=== PATIENT | male | born 1930 | race Caucasian/White ===

== ENCOUNTER 2016-07-23 23:56 | Inpatient (IN) | payer MEDICARE ==
[~2016-07-23] VITALS: Ht 165.1 cm; Wt 90.7 kg
[~2016-07-23 23:56] MED LIST: CHOL100045 PO; CYAN500 PO; LISI10TA PO; OMEP20CA11 PO; TAMS0.4C98 PO; TRIA1TAB3 PO
[2016-07-24] VITALS (10 sets, daily range): BP systolic 103–128; BP diastolic 51–75; PULSE 63–115; RESP 14–21; O2SAT 94–98
--- NOTE | 2016-07-24 00:07 | ED.REPORT ---
HPI-General Illness Date of Service Jul 24, 2016 ED Provider: Bebeto Ford MD Patient is a 85 year old male with a history of ITP and hypertension who presents to the ED via EMS after became increasingly weak this evening, following 3 days of flu-like symptoms. Patient reports a frequent cough and difficulty breathing. Patient is accompanied by his daughter (GEOVANNI), who served as the primary historian. His daughter reports that the patient nearly fell to the ground several times this evening and he is not able to ambulate well on his own. She claims that he sustained a ground level fall just prior to arrival. The patient states that he simply slumped down into his chair and then onto the ground. However, his daughter apparently heard a thump from the other room. Patient states that he is too weak to sit up on arrival to the ED. His daughter reports that everyone in the family is currently has an upper respiratory infection. His was recently admitted to [facility] for pneumonia. The patient had a chest x-ray earlier today, which did not show a definite pneumonia. Per his daughter, his PCP (Dr. Pascal) stated that the X-ray was a poor film and that he appeared "congested". He was started on Levofloxacin for an upper respiratory infection. The patient had his first dose this evening and his daughter is concerned that he may have renal failure. The patient has also had a fever earlier today, as high as 102.1F. The patient does not have an inhaler or nebulizer at home. He denies a history of asthma or COPD. Patient also reports having severe back pain, which started after the chest x-ray tonight. Patient denies chest pain or increased swelling in his legs. Patient denies sustaining any injuries tonight. Nursing Notes Stated Complaint: WEAKNESS Chief Complaint: General Complaint Nursing Notes Reviewed: Yes Allergies: Coded Allergies: bacitracin (Verified Allergy, Unknown, 07/24/16) clonidine (Verified Allergy, Unknown, 07/24/16) gramicidin D (Verified Allergy, Unknown, 07/24/16) neomycin (Verified Allergy, Unknown, 07/24/16) polymyxin B (Verified Allergy, Unknown, 07/24/16) terbinafine (Verified Allergy, Unknown, 07/24/16) Scheduled Cholecalciferol (Vitamin D3) (Vitamin D3) 2,000 Unit Capsule 1 CAPSULE PO DAILY Cyanocobalamin (Vitamin B12) 500 Mcg Tablet 1,000 MCG PO DAILY Lisinopril (Lisinopril) 10 Mg Tablet 10 MG PO DAILY Omeprazole (Omeprazole) 20 Mg Capsule.dr 20 MG PO BID Tamsulosin (Flomax) 0.4 Mg Capsule 0.4 MG PO DAILY Triamterene/HCTZ 37.5-25 mg (Triamterene/HCTZ 37.5-25 mg) 1 Each Tablet 0.5 TABLET PO DAILY General Time Seen by MD: 00:01 Chief Complaint Cough, Flu-like illness, Weakness Hx Obtained From: Patient Arrived By: Ambulance Sudden in Onset?: No Onset Occurred: 3 days ago (weakness just prior to arrival, URI symptoms for 3 days) Symptom Duration: Since onset Location: : Back Quality: Painful Severity: Current: Moderate Severity: Maximum: Severe Recent Healthcare: No recent hospitalization, Recent doctor visit Similar Sx Previous: Yes Past Medical History Past Medical History Chronic refractory idiopathic thrombocytopenia purpura Gout Gipson's esophagus Hiatal hernia Basal cell carcinoma of lips Actinic keratosis Benign Prostatic Hypertrophy Reports: Hypertension Past Surgical History splenectomy Reports: Appendectomy, Cataract surgery, Cholecystectomy, Inguinal hernia repair Reports: Knee replacement Smoking History Never Smoker Social History Alcohol Use: "Social" Drug Use: Denies drug use Other Social History: Good social support, Local resident Ambulatory Status Independent Review of Systems Full Review of Systems Constitutional: Reports: Fever, Weakness - generalized Respiratory: Reports: Non-productive cough, Shortness of breath Musculoskeletal: Reports: Back pain, Denies: Extremity pain, Extremity swelling, Joint pain Complete sys rev & neg: except as marked. Physical Exam Vital Signs Vital Signs Date Time Temp Pulse Resp B/P Pulse Ox O2 Delivery O2 Flow Rate FiO2 07/24/16 02:57 36.9 105 21 103/51 98 Room Air 07/24/16 00:00 37.4 115 16 117/66 97 Room Air Initial VS: Reviewed, Vital signs abnormal Head / Eyes: Atraumatic, Normocephalic, PERRL ENT: Mucous membranes moist, Conjunctiva normal, No scleral icterus Abdomen / GI: Soft, Non-tender, No guarding, No rebound Skin: Warm, Dry, No cyanosis Neurologic: Alert, Oriented, Nonfocal Psychiatric: Mood/affect normal, Behavior normal, Normal thought content General/Constitutional: Awake, Alert tremulous Neck: Supple, No JVD Respiratory / Chest: No rales Resp Distress / Stridor: Positive: Resp distress mild Wheezing / Retractions: Positive: Wheeze insp/exp diffuse Rales / Rhonchi: Positive: Rhonchi diffuse Cardiovascular: Regular rhythm, Heart sounds NL, No gallop, No murmurs Heart Rate / Rhythm: Positive: Tachycardia Lower Extremity / Pelvis / MS: No swelling, No edema Interpretation & Diagnostics Lab Results Interpretation Result Diagram: 07/24/16 0034 07/24/16 0034 Test 07/24/16 00:34 White Blood Count 12.5th/mm3 (3.8-10.1) Red Blood Count 4.46mil/mm3 (4.40-5.80) Hemoglobin 13.9g/dL (13.8-17.2) Hematocrit 39.2% (41.0-50.0) Mean Corpuscular Volume 87.9fL (81-100) Mean Corpuscular Hemoglobin 31.2pg (27.0-35.0) Mean Corpuscular Hemoglobin Concent 35.5% (32.0-37.0) Red Cell Distribution Width 13.0% (12.3-15.4) Platelet Count 162bil/L (150-400) Neutrophils (%) (Auto) 78.4% (40-74) Lymphocytes (%) (Auto) 9.9% (14-46) Monocytes (%) (Auto) 11.2% (4-12) Eosinophils (%) (Auto) 0.1% (0-5) Basophils (%) (Auto) 0.2% (0-3) Prothrombin Time 10.7sec (8.1-12.5) Prothromb Time International Ratio 1.00ratio D-Dimer 1.4mg/L (<0.50) Sodium Level 121mEq/L (134-144) Potassium Level 3.8mEq/L (3.5-5.2) Chloride Level 82mEq/L (97-108) Carbon Dioxide Level 25mmol/L (18-29) Blood Urea Nitrogen 21mg/dL (8-27) Creatinine 1.08mg/dL (0.76-1.27) Estimat Glomerular Filtration Rate 69mL/min (>59) Glucose Level 107mg/dL (60-99) Lactic Acid Level 1.4mmol/L (0.4-2.0) Calcium Level 8.6mg/dL (8.5-10.1) Total Bilirubin 1.6mg/dL (0.0-1.2) Aspartate Amino Transf (AST/SGOT) 21U/L (0-50) Alanine Aminotransferase (ALT/SGPT) 11U/L (0-44) Alkaline Phosphatase 61U/L (25-160) Troponin T 0.010ug/L (0.0-0.011) Pro-B-Type Natriuretic Peptide 332pg/mL (0-486) Total Protein 7.2g/dL (6.4-8.4) Albumin 3.9g/dL (3.4-5.0) Procalcitonin 0.26ng/mL (0.00-0.08) Lab Results Interpretation: Elevated white blood count, hyponatremia, elevated d-dimer ECG Interpretation ECG Interpretation: Atrial fibrillation, Rate 88 new compared to prior EKG Time: 00:44 Interpreted by: ED physician X-Ray Chest Interpretation Chest Xray Interpretation: Impression: Possible right lower lobe infiltrate. Compared to 2VW X-ray from earlier today: MD Impression: Retrocardiac right sided pneumonia. View: Portable Interpretation / Wet Read by: Wet read ED physician CT Chest Interpretation CONCLUSION: No evidence of pulmonary embolus. Radiologist: Judson Hernandez MD 07/24/2016 - 2:34:44 AM PST Study type: CT pulm angiogram Interpretation / Wet Read by: Interpret - Radiologist Re-Eval/Medical Decision Med Decision/Clinical Course 85-year-old who presents with cough and weakness. He was diagnosed yesterday in the clinic with a pneumonia. There does appear to be an area of infiltrate at the left base but this is called negative by the radiologist. He was given levofloxacin and has received one dose of that. His labs are all normal with exception of an elevated white count at 12,500. Chest x-ray does appear to have a left lower lobe pneumonia. His d-dimer was elevated so chest CT scan was done which showed no definite pulmonary embolus. He was given Rocephin. He will be admitted to the hospital by Dr. Dominguez. Please see patient's chart for details. Source of Hx: Old records Time of Eval: 01:46 Re-Evaluation/Progress Note: Rechecked the patient. He is improved with pain medication. Informed the patient of the results of his labs and chest x-ray. He was found to have an elevated D-dimer, meaning he will need a CT angio. Time of Eval: 03:40 Re-Evaluation/Progress Note: Rechecked the patient to discuss his CT results. No acute problem identified. Patient will be treated for pneumonia due to his symptoms. Patient understands and agrees with the plan for hospital admission. All questions were addressed. Consultation : Referral / Consult Name: Ricky Dominguez MD Consulted With: Hospitalist Call Returned at: 03:51 Counter Top Assembler: Will see patient, Agrees with eval, Agrees with plan, Accepts admit Note: Spoke with Dr. Dominguez, hospitalist, who agrees to accept admit. Counseled Regarding: Diagnosis, Lab results, Need for admission Discharge & Departure Primary Impression: Pneumonia Pneumonia type: due to unspecified organism Laterality: bilateral Lung location: lower lobe of lung Qualified Code: J18.9 - Pneumonia, unspecified organism Additional Impressions: Weakness Hypoxia Disposition: ADMITTED TO HOSPITAL Discharge Condition All VS Reviewed: Yes Condition: Stable Referrals: Austyn Pasacl MD (PCP) Scribe Attestation Portions of this note were transcribed by Tata Bradley. I, Dr. Ford personally performed the history, physical exam and medical decision-making; I reviewed and confirmed the accuracy of the information in the transcribed note. Signed by: Maged Combs, 07/24/2016 0401 copies to: Austyn Pascal MD, Howard L MD Jul 24, 2016 00:07 Tata Bradley Jul 24, 2016 00:14
[2016-07-24] MEDS ORDERED: CHOL200047 PO (00:15)
[2016-07-24] MEDS ORDERED: 0.9% Sodium Chloride 1,000 ML IV ONE ×2 (00:18→02:15)
[2016-07-24] MEDS ORDERED: Albuterol 2.5 mg/3 mL Inhalation Solution NEB ONE (00:20)
[2016-07-24] MEDS ORDERED: Albuterol-Ipratropium 3 mL Inhalation Solution NEB ONE (00:20)
[2016-07-24] MEDS: HYDROmorphone 0.5 mg/0.5 mL iSecure Syringe IVPUSH PRN ×2 (00:39→02:48)
[2016-07-24 00:45] LABS: BASOPHILS % (AUTO) 0.2 % (0-3); EOSINOPHILS % (AUTO) 0.1 % (0-5); MONOCYTES % (AUTO) 11.2 % (4-12); Mean Corpuscular Hemoglobin 31.2 pg (27.0-35.0); Mean Corpuscular Volume 87.9 fL (81-100); NEUTROPHILS % (AUTO) 78.4 % (40-74); Platelet Count 162 bil/L (150-400)
[2016-07-24 01:08] LABS: D-DIMER 1.4 mg/L (<0.50)
[2016-07-24 01:14] LABS: TROPONIN T 0.01 ug/L (0.0-0.011)
[2016-07-24] MEDS ORDERED: Polyethylene Glycol (PEG) 17 Gm Powder PO PRN (03:55)
[2016-07-24] MEDS ORDERED: Alum-Mag Hydrox-Simeth 30 mL Suspension PO PRN (03:55)
[2016-07-24] MEDS ORDERED: cefTRIAXone Inj 2,000 MG in Dextrose 5% Minibag Plus 50 ML IV ONE (04:00)
--- NOTE | 2016-07-24 04:50 | NUR ---
Admit Pt admitted to floor by Krishan. Report given by Sophie Paige. Pt VSS except [address] 102. Pt on 2L.
--- NOTE | 2016-07-24 05:11 | PCM.HPMED ---
Subjective Date of Service Jul 24, 2016 Primary Provider: Admitting Physician: Primary Care Physician: Austyn Pascal MD Attending Physician: Admit Status: From the Emergency Department, Full Admit, Remote Telemetry Chief Complaint: Weakness with coughing History of Present Illness: Pascual Brewster is a 85 year old male with a history of ITP and hypertension who presents to the ED via EMS after became increasingly weak. Patient reports a frequent cough and difficulty breathing. Associated symptoms include chills, cough, dyspnea, fatigue, fever, sinus pressure, sore throat and wheezing. He also developed generalized weakness. His daughter reports that the patient nearly fell to the ground several times this evening and he is not able to ambulate well on his own. She claims that he sustained a ground level fall just prior to arrival. However, his daughter apparently heard a thump from the other room. His daughter reports that everyone in the family is currently has an upper respiratory infection. His was recently admitted to [place] for pneumonia. . Per his daughter, his PCP (Dr. Pascal) stated that the X-ray was a poor film and that he appeared "congested". He was started on Levaquin for an upper respiratory infection. The patient had his first dose this evening. The patient has also had a fever earlier today, as high as 102.1F. He denies a history of asthma or COPD. Patient denies chest pain or increased swelling in his legs. Case discussed with Dr Ford, plans to admit due to failed outpatient treatment for pneumonia Review of Systems: Pertinent positives as noted in HPI. All other systems were reviewed and are negative Allergies Coded Allergies: bacitracin (Verified Allergy, Unknown, 07/24/16) clonidine (Verified Allergy, Unknown, 07/24/16) gramicidin D (Verified Allergy, Unknown, 07/24/16) neomycin (Verified Allergy, Unknown, 07/24/16) polymyxin B (Verified Allergy, Unknown, 07/24/16) terbinafine (Verified Allergy, Unknown, 07/24/16) Home Medications From Miles Torres Pascual BrewsterKristian [phone] [id number] 07/23/2016 11:40 AM 1 Flomax 0.4 mg capsule take 1 capsule by oral route every day 1/2 hour following the same meal each day levofloxacin 750 mg tablet take 1 tablet by oral route every day lisinopril 10 mg tablet TAKE 1 TABLET ORALLY 1 TIME A DAY MULTI-VITAMIN WITH FLUORIDE daily omeprazole 20 mg capsule,delayed release TAKE ONE CAPSULE BY MOUTH TWICE DAILY BEFORE A MEAL FOR QUIROZ'S ESOPHAGUS tramadol 50 mg tablet take 1 tab po bid prn Triamterene-HCTZ Oral Tablet 37.5-25 MG TAKE HALF TABLET BY MOUTH DAILY PMH Chronic refractory idiopathic thrombocytopenia purpura Hypertension Quiroz's esophagus, EGD 02/20/16 showed Mild segment Quiroz esophagus from 30- 38 cm from incisors status post four quadrant biopsies every 1 cm. Hiatal hernia. Basal cell carcinoma of lips Actinic keratosis Benign Prostatic Hypertrophy . Surgical History Cholecystectomy, inguinal hernia, knee surgery, eye surgery. Family History reviewed. Nothing significant Social History Hx Alcohol Use: Yes (rare) Hx Substance Use: No Hx Tobacco Use: No Smoking Status: Never Smoker Living Arrangement: with Family Exam Vital Signs Vital Sign - Last Date Time Temp Pulse Resp B/P Pulse Ox O2 Delivery O2 Flow Rate FiO2 07/24/16 02:57 36.9 105 21 103/51 98 Room Air Intake and Output 07/23/16 07/23/16 07/24/16 Cumulative From/Thru 15:00 23:00 07:00 07/24/16 00:00 - 07/24/16 02:27 Intake Total 2000 ml 2000 ml Balance 2000 ml 2000 ml Intake IV Total 2000 ml 2000 ml Exam General: Alert, Oriented X3, Cooperative, No acute Distress Eyes: PERRLA, Scleral Anicteric Mouth: Mouth Normal, Mucous Membranes Moist/[place] Neck: Supple, no Thyromegaly, trachea central. Chest & Lungs: diffuse rhonchi Cardiovascular: Normal S1, Normal S2, No Murmurs/Rubs/Gallops, Regular Rate/ Rhythm, (No JVD, no peripheral edema) Pulses: Radial (present and equal), Dorsalis Pedi (present and equal) Abdomen: Soft, Non-tender, Non-distended, Normoactive bowel tones. Musculoskeletal: Unremarkable. Normal range of motion, no swollen or erythematous joints Extremities: No edema, no cyanosis, no clubbing. Skin: No rashes. Warm and dry, no erythematous areas Neurological: Grossly neurologically intact, has generalized weakness, Normal Speech, Sensation Intact Lymphatic: Lymph nodes Cervical and Axillary not palpable. Lab and Diagnostics Labs Laboratory Tests Test 07/24/16 00:34 White Blood Count 12.5th/mm3 (3.8-10.1) Red Blood Count 4.46mil/mm3 (4.40-5.80) Hemoglobin 13.9g/dL (13.8-17.2) Hematocrit 39.2% (41.0-50.0) Mean Corpuscular Volume 87.9fL (81-100) Mean Corpuscular Hemoglobin 31.2pg (27.0-35.0) Mean Corpuscular Hemoglobin Concent 35.5% (32.0-37.0) Red Cell Distribution Width 13.0% (12.3-15.4) Platelet Count 162bil/L (150-400) Neutrophils (%) (Auto) 78.4% (40-74) Lymphocytes (%) (Auto) 9.9% (14-46) Monocytes (%) (Auto) 11.2% (4-12) Eosinophils (%) (Auto) 0.1% (0-5) Basophils (%) (Auto) 0.2% (0-3) Prothrombin Time 10.7sec (8.1-12.5) Prothromb Time International Ratio 1.00ratio D-Dimer 1.4mg/L (<0.50) Sodium Level 121mEq/L (134-144) Potassium Level 3.8mEq/L (3.5-5.2) Chloride Level 82mEq/L (97-108) Carbon Dioxide Level 25mmol/L (18-29) Blood Urea Nitrogen 21mg/dL (8-27) Creatinine 1.08mg/dL (0.76-1.27) Estimat Glomerular Filtration Rate 69mL/min (>59) Glucose Level 107mg/dL (60-99) Lactic Acid Level 1.4mmol/L (0.4-2.0) Calcium Level 8.6mg/dL (8.5-10.1) Total Bilirubin 1.6mg/dL (0.0-1.2) Aspartate Amino Transf (AST/SGOT) 21U/L (0-50) Alanine Aminotransferase (ALT/SGPT) 11U/L (0-44) Alkaline Phosphatase 61U/L (25-160) Troponin T 0.010ug/L (0.0-0.011) Pro-B-Type Natriuretic Peptide 332pg/mL (0-486) Total Protein 7.2g/dL (6.4-8.4) Albumin 3.9g/dL (3.4-5.0) Procalcitonin 0.26ng/mL (0.00-0.08) Microbiology 07/24/16 Blood Culture, Received Pending Result Diagram: 07/24/16 0034 07/24/16 0034 Assessment & Plan Pascual Brewster is a 85 year old male with a history of ITP and hypertension who presents to the ED via EMS after became increasingly weak. Treated by Levaquin as outpatient but symptoms continues to worsens 1. Community acquired pneumonia. Failed outpatient therapy. Present on admission Likely due to sick contacts. Failed treatment with Levaquin. - Ceftriaxone and Azithromycin IV for empiric antibiotics - Blood cultures, Legionella test - Iv fluids resuscitations 2. Influenza A infection. Present on admission - stating Tamiflu - advised family to contact their PCP for prophylactic treatment with Tamiflu - respiratory isolation 3. Hypertension Currently stable with compliance - Lisinopril 10 mg daily - holding Triamterene and HCTZ but continue on discharge 4. Chronic refractory idiopathic thrombocytopenia purpura Currently stable - continue follow up at Hematology clinic with Dr Neves - no anticoagulations due to risk of bleeding 5. Quiroz's esophagus Previous EGD done with pathology showing no dysplasia - continue Omeprazole 20 mg bid - repeat upper endoscopy in three years for surveillance for Quiroz's. 6. Benign Prostatic Hypertrophy - continue Flomax - Acetaminophen as needed for mild pain/fever/headache - Bowel regimen as needed - Antiemetic as needed Patient admitted under inpatient status with expected length of stay > 2 midnights for severity of present symptoms, complexities of treatment plan and risk for adverse event . Resuscitation Status: CPR: Attempt Resuscitation Ricky Dominguez MD Jul 24, 2016 04:00
--- NOTE | 2016-07-24 05:30 | NUR ---
Isolation Pt on droplet precautions d/t Influenza A/pneumonia.
[2016-07-24] MEDS: 0.9% Sodium Chloride 1,000 ML IV SCH ×2 (05:39→17:47)
[2016-07-24] MEDS: Azithromycin Inj 500 MG in Dextrose 5% w/Vial Mate 250 ML IV SCH (08:16)
[2016-07-24] MEDS: Heparin 5,000 Unit/mL Inj SUBQ SCH ×2 (08:16→16:12)
[2016-07-24] MEDS ORDERED: Albuterol 2.5 mg/3 mL Inhalation Solution NEB PRN (09:15)
--- NOTE | 2016-07-24 09:25 | DRSVH ---
PROCEDURE: X-RAY CHEST ONE VIEW, PORTABLE ([id number]) INDICATIONS: cough, fever TECHNIQUE: One view of the chest was acquired. COMPARISON: [facility], CR, XR CHEST 1VW (PORTABLE), 03/09/2016, 22:10. FINDINGS: Surgical changes and devices: Left upper quadrant surgical clips. Lungs and pleura: No pleural effusions or pneumothorax. Lungs are clear, aside from medial bibasila r airspace opacities. Mediastinum: Mediastinal contours appear normal. Heart size is normal. Bones and chest wall: No suspicious bony lesions. Overlying soft tissues appear unremarkable. IMPRESSION: Probable atelectasis involving the lung bases but developing pneumonia or aspiration reina ot be excluded. Dictated by: Marck Mitchell A Interpreted: Ethel Head MD on 07/24/2016 at 9:24 Transcribed by: ADILENE on 07/24/2016 at 9:25 Approved by: Ethel Head MD, PhD on 07/24/2016 at 17:01
--- NOTE | 2016-07-24 09:32 | DRSVH ---
PROCEDURE: CT ANGIO CHEST PULMONARY EMBOLISM ([id number]) INDICATIONS: short of breath, elev dimer TECHNIQUE: After the administration of intravenous contrast, 2 mm thick sections acquired from the pulmonary api destini to the posterior costophrenic angles. 3-dimensional maximum intensity projection (MIP) coronal a nd sagittal reformats were then acquired through the thorax. For radiation dose reduction, the follo wing was used: automated exposure control, adjustment of mA and/or kV according to patient size. COMPARISON: None. FINDINGS: Image quality: Excellent. Pulmonary arteries: Pulmonary arteries are normal in size, and demonstrate no intraluminal filling d efects to suggest central pulmonary embolism. Lungs and pleura: Atelectasis noted in the dependent portions of the lungs. No pleural effusions or p neumothorax. Central and peripheral airways are patent. Mediastinum: Heart size is normal, without pericardial effusion. Atherosclerotic calcifications are noted in the aorta, great vessels, coronary vasculature. No mediastinal or hilar adenopathy. Thoraci c aorta is normal in caliber and enhancement. Esophagus is normal in caliber, without hiatal hernia. Bones and chest wall: S-shaped scoliosis of the spine is noted. No suspicious bony lesions. Bilatera l shoulder osteoarthritis noted. Thoracic spine degenerative disc disease and facet arthropathy noted . Ribs and thoracic spine appear intact throughout. Thyroid gland is within normal limits. No axill sandie or supraclavicular adenopathy. Abdomen: Hiatal hernia is noted. Spleen is absent. Gallbladder is absent.. IMPRESSION: No pulmonary embolus. Dictated by: Ethel Head MD, PhD on 07/24/2016 at 9:23 Approved by: Ethel Head MD, PhD on 07/24/2016 at 9:31
--- NOTE | 2016-07-24 10:45 | NUR ---
Evaluation completed. Please go to "Notes" then click on "Assessments and Notes" (bottom left corner of screen). Then select appropriate discipline tab on top of screen.
--- NOTE | 2016-07-24 12:24 | NUR ---
Pt reporting urge to void but is experiencing retention. He has been using the urinal and so far has voided x3, a total of 350 output. He was bladder scanned this morning and had 658cc in his bladder. Doctor aware. Will continue to monitor and bladder scan as needed. Addendum: 07/24/16 at 1557 by LOKESH GAO RN The patient voided several times using the urinal. After voiding 200ml he was bladder scanned and still have 580cc remaining. Doctor notified. Addendum: 07/24/16 at 1909 by LOKESH GAO RN After being bladder scanned at 1540, the patient voided twice for a total of 500cc.
--- NOTE | 2016-07-24 16:34 | NUR ---
Social Work: Initial Assessment Data & Assessment: See Initial Assessment. EMR Reviewed. Patient is a 85 y/o male that admitted with influenza per H& P. Fiscal Accountant met with patient and the patient's daughter to complete initial assessment, discuss discharge planning, and SW role explained. Patient lives at home with his and he is her caregiver. Patient does not have any DME and drives at baseline. Patient has never had HH or SNF. Patient's daughter is his DPOA and SW requested a copy of DPOA. Plan: Patient will likely discharge home with no needs. SW will continue to follow. Brianda Mi LMSW, [facility] Addendum: 07/24/16 at 1656 by BRIANDA MI Amended: Links added.
[2016-07-25] VITALS (8 sets, daily range): BP systolic 111–145; BP diastolic 68–92; PULSE 62–79; RESP 16–20; O2SAT 97–99
[2016-07-25] MEDS: Heparin 5,000 Unit/mL Inj SUBQ SCH ×3 (00:24→16:06)
[2016-07-25] MEDS: 0.9% Sodium Chloride 1,000 ML IV SCH ×3 (03:20→15:29)
[2016-07-25] MEDS: cefTRIAXone Inj 2,000 MG in Dextrose 5% Minibag Plus 50 ML IV SCH (03:21)
[2016-07-25 05:16] LABS: APPEARANCE,URINE CLEAR (CLEAR,HAZY); COLOR,URINE YELLOW (YELLOW)
[2016-07-25 05:17] LABS: OCCULT BLOOD,URINE TRACE (NEGATIVE); PH,URINE 5.5 (5.0-8.0)
--- NOTE | 2016-07-25 05:42 | PCM.PNMED ---
Subjective Date of Service Jul 25, 2016 Subjective Patient was seen and examined. He states that he needed pain medication last night it was not clear whether the medication was needed for his low back pain or his abdominal pain. Later in the day daughter called the nurse due to concern for abdominal distention. Patient is eating well and not nauseated. He states he has no fevers or chills. His daughter is contacted at her home and she states that this area over his abdomen has enlarged more than before. He is urinating fine, no longer having issues with urinary retention. No other concerns. Exam Vital Signs Vital Sign - Last Date Time Temp Pulse Resp B/P Pulse Ox O2 Delivery O2 Flow Rate FiO2 07/25/16 05:34 62 07/25/16 02:08 36.6 18 111/92 98 Nasal Cannula 2.00 Intake and Output 07/24/16 07/24/16 07/25/16 Cumulative From/Thru 15:00 23:00 07:00 07/24/16 00:00 - 07/25/16 00:31 Intake Total 0 ml 1563 ml 3563 ml Output Total 0 ml 1350 ml 1350 ml Balance 0 ml 213 ml 2213 ml Intake Oral 0 ml 300 ml 300 ml IV Total 1263 ml 3263 ml Output Urine Total 0 ml 1350 ml 1350 ml Exam Gen.: No acute distress: HEENT: Normocephalic, atraumatic Neck: Negative for JVD Abdomen: Incisional scar from old surgery over the mid abdomen about the umbilicus. It appears and feels rigid however no guarding noted on examination. Normal bowel sounds are present Heart regular rate and rhythm no S3-S4 Extremities: 2+ edema Psych: Negative for anxiety Neuro: No focal neurological deficits, it appears to have short-term and long- term memory loss IVs and Medications IV Fluids 50 cc/hr Medications Reviewed: Medications were reviewed in detail Lab and Diagnostics CBC Test 07/25/16 08:02 White Blood Count 8.0th/mm3 (3.8-10.1) Red Blood Count 3.95mil/mm3 (4.40-5.80) Hemoglobin 12.3g/dL (13.8-17.2) Hematocrit 35.1% (41.0-50.0) Mean Corpuscular Volume 88.9fL (81-100) Mean Corpuscular Hemoglobin 31.1pg (27.0-35.0) Mean Corpuscular Hemoglobin Concent 35.0% (32.0-37.0) Red Cell Distribution Width 13.0% (12.3-15.4) Platelet Count 123bil/L (150-400) Neutrophils (%) (Auto) 58.7% (40-74) Lymphocytes (%) (Auto) 27.0% (14-46) Monocytes (%) (Auto) 11.9% (4-12) Eosinophils (%) (Auto) 1.9% (0-5) Basophils (%) (Auto) 0.4% (0-3) CMP Test 07/24/16 00:34 07/25/16 08:02 Lactic Acid Level 1.4mmol/L Troponin T 0.010ug/L Pro-B-Type Natriuretic Peptide 332pg/mL Sodium Level 129mEq/L Potassium Level 4.0mEq/L Chloride Level 93mEq/L Carbon Dioxide Level 22mmol/L Blood Urea Nitrogen 11mg/dL Creatinine 0.67mg/dL Estimat Glomerular Filtration Rate 120mL/min Glucose Level 87mg/dL Calcium Level 8.0mg/dL Total Bilirubin 0.5mg/dL Aspartate Amino Transf (AST/SGOT) 22U/L Alanine Aminotransferase (ALT/SGPT) 10U/L Alkaline Phosphatase 52U/L Total Protein 5.5g/dL Albumin 3.1g/dL Procalcitonin 0.56ng/mL Result Diagram: 07/24/16 0034 07/24/16 0034 Microbiology Laboratory Tests Test 07/25/16 05:00 Urine Color Yellow Urine Appearance Clear Urine pH 5.5 Urine Specific [place] 1.020 Urine Protein Negativemg/dL Urine Glucose (UA) Negativemg/dL Urine Ketones Tracemg/dL Urine Occult Blood Trace Urine Nitrite Negative Urine Bilirubin Negative Urine Urobilinogen 1.0mg/dL Urine Leukocyte Esterase Negative Urine RBC 0-2/hpf Urine WBC 0-5/hpf Urine Epithelial Cells Occasional/hpf Urine Crystals None seen Urine Bacteria Few/hpf Urine Hyaline Casts None/lpf Urine Granular Casts Occasional Urine Waxy Casts None seen Urine Red Blood Cell Casts None seen Urine White Blood Cell Casts None seen Urine Mucus None seen Urine Trichomonas None seen Urine Yeast None Urinalysis Comment None Urine Culture Reflexed Not indicated Assessment & Plan Pascual Brewster is a 85 year old male with a history of ITP and hypertension who presents to the ED via EMS after became increasingly weak. Treated by Levaquin as outpatient but symptoms continues to worsens 1. Community acquired pneumonia. Failed outpatient therapy. Present on admission Likely due to sick contacts. Failed treatment with Levaquin. - Ceftriaxone and Azithromycin IV for empiric antibiotics - Blood cultures, Legionella test - Iv fluids resuscitations: 50 cc/hr 2. Influenza A infection. Present on admission - stating Tamiflu - advised family to contact their PCP for prophylactic treatment with Tamiflu - respiratory isolation 3. Hypertension Currently stable with compliance - Lisinopril 10 mg daily - holding Triamterene and HCTZ but continue on discharge 4. Chronic refractory idiopathic thrombocytopenia purpura Currently stable - continue follow up at Hematology clinic with Dr Neves - no anticoagulations due to risk of bleeding 5. Gipson's esophagus Previous EGD done with pathology showing no dysplasia - continue Omeprazole 20 mg bid - repeat upper endoscopy in three years for surveillance for Gipson's. 6. Benign Prostatic Hypertrophy - continue Flomax - Acetaminophen as needed for mild pain/fever/headache - Bowel regimen as needed - Antiemetic as needed 7, Abdominal pain over incisional hernia: Pain control with morphine 4 mg IV every 4 hour when necessary, CT abdominal with contrast is ordered. General surgery contacted and aware. . Patient admitted under inpatient status with expected length of stay > 2 midnights for severity of present symptoms, complexities of treatment plan and risk for adverse event . Pain Evaluation: Adequate Pain Control Resuscitation Status: CPR: Attempt Resuscitation Jennifer Pineda DO Jul 25, 2016 05:41
--- NOTE | 2016-07-25 06:03 | NUR ---
/Pain pt has been bladder scanned x2. first one was done 1/hr after pt void and showed >258ml. 2nd bladder scanned showed 380ml. pt void a total of 1025ml. pt c/o 10/25 back/leg pain X2. per pt,Tramadol is not relieving his pain. pt state "the one they gave to me in the ED was helpful;" which was Dilaudid. paged HS hospitalist. ordered PO Dilaudid. Administered per order. pt report pain relief 3-08/25, which was tolerable for him. VSS. Bed is locked and in low position. call light within reach. will continue to monitor.
[2016-07-25 08:14] LABS: BASOPHILS % (AUTO) 0.4 % (0-3); EOSINOPHILS % (AUTO) 1.9 % (0-5); MONOCYTES % (AUTO) 11.9 % (4-12); Mean Corpuscular Hemoglobin 31.1 pg (27.0-35.0); Mean Corpuscular Volume 88.9 fL (81-100); NEUTROPHILS % (AUTO) 58.7 % (40-74); Platelet Count 123 bil/L (150-400)
[2016-07-25] MEDS: Azithromycin Inj 500 MG in Dextrose 5% w/Vial Mate 250 ML IV SCH (08:15)
--- NOTE | 2016-07-25 11:00 | NUR ---
Abd hernia It is noted that the pt has a large abd hernia. Pt says he feels bloated but it is not painful. It is not clear if the hernia is new. Hospitalist notified. Will continue to monitor.
--- NOTE | 2016-07-25 14:40 | NUR ---
Social Work Note - Continued Discharge Planning: D/A: The Pt is an 85 y/o male that was admitted for pneumonia/weakness. PT eval completed on 07/24, recommending discharge to SNF. PT recommendation explored with Pt, HH/SNF preference list given to Pt. Pt is not agreeable to a SNF stay at this time, but is agreeable for HH. SW requested to contact family regarding recommendations, Pt requested SW to contact daughter. SW t/c to the Pt's daughter, SW to meet family at [facility] this afternoon. SW will continue to follow. P: The Pt is not medically stable for discharge. PT eval completed, recommending SNF. Pt is not agreeable to SNF, but is agreeable for HH. SW to follow up with family regarding PT recommendations, SNF, and HH. SW will continue to follow. JORGE ALBERTO Mackey Scale Tank Operator NOAH Trevino Addendum: 07/25/16 at 1542 by LENCHO SPARKS SS Updated PT eval completed, PT to see Pt for stair navigation training next Tx and then 2x/week to progress AD. Once Pt demonstrates safe stair navigation x5, Pt will be safe to discharge home with OtPt for continued progression to PLOF as per PT note. SW met with the Pt, his daughter Betina, and his son-in-law. 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 Daughter also reports that her son stays with the Pt and assists with care at night, when needed. Senior Resource Guide explored, daughter requested copy. Copy given. SW will continue to follow. JORGE ALBERTO Mackey Scale Tank Operator
--- NOTE | 2016-07-25 22:03 | DRSVH ---
PROCEDURE: CT ABDOMEN AND PELVIS WITH CONTRAST ([id number]) INDICATIONS: abdominal pain over incisional hernia TECHNIQUE: After the administration of oral and intravenous contrast, 5 mm thick sections acquired from the diap hragms to the symphysis. 5 mm thick coronal and sagittal reformats were performed. For radiation do se reduction, the following was used: automated exposure control, adjustment of mA and/or kV accordi ng to patient size. COMPARISON: [facility], CT, CT ANGIO CHEST PE, 03/10/2016, 4:55. [facility] , CT, CT ANGIO CHEST PE, 07/24/2016, 2:04. FINDINGS: Image quality: Excellent. ABDOMEN: Lung bases: Atelectasis or consolidation is present within the right lower lobe which is new when com pared with the study dated 07/24/16. There are trace bilateral low density pleural effusions. Heart is normal size. No pericardial effusion. There is a small hiatal hernia. Solid organs: Liver and spleen are normal in size and enhancement. Gallbladder is surgically absent . Biliary system is non-dilated. Pancreas enhances normally. No adrenal nodules. Kidneys are norm al in size and enhancement, without hydronephrosis. Peritoneum and bowel: The stomach is contrast-filled and decompressed. The small bowel demonstrates o verall normal course and caliber. A large amount of stool and gas is present within the cecum. The ap pendix is not visualized; however surgical clips are present in the region of the cecum in the lower quadrant suggesting prior appendectomy. The transverse colon is moderately dilated with gas. The sigmoid colon is decompressed. A large amoun t of stool is present in the rectosigmoid region. There is a gas-filled duodenal diverticulum. No radha e fluid or air. Nodes and vessels: No retroperitoneal or mesenteric adenopathy. Aorta and inferior vena cava are no rmal in caliber. There are scattered atheromatous calcifications throughout the aorta and iliac ron hannah bilaterally. Miscellaneous: There are multiple small adjacent fat-containing ventral hernias. No bowel herniation. PELVIS: Genitourinary: Bladder wall thickness is normal. Miscellaneous: No inguinal hernias or adenopathy. Bones: No suspicious bony lesions. A wedge compression deformity is present at T12 unchanged with th e study dated 03/10/16. IMPRESSION: 1. Large amount of stool in the rectosigmoid and cecal regions with moderate gaseous distention of th e transverse and descending colon. These findings raise the suspicion for early ileus or early distal colonic obstruction secondary to fecal impaction. The small bowel remains decompressed. 2. Multiple small fat-containing ventral hernias as above. No bowel herniation. 3. Probable prior appendectomy. 4. New consolidation or atelectasis at the right lung base. Infection/aspiration could be considered in the differential. Dictated by: Sandra Katz M.D. on 07/25/2016 at 21:55 Approved by: Sandra Katz M.D. on 07/25/2016 at 22:02
[2016-07-26] VITALS (7 sets, daily range): BP systolic 119–153; BP diastolic 74–79; PULSE 63–74; RESP 16–22; O2SAT 96–98
[2016-07-26] MEDS: Heparin 5,000 Unit/mL Inj SUBQ SCH ×3 (00:54→16:37)
[2016-07-26] MEDS: 0.9% Sodium Chloride 1,000 ML IV SCH (04:04)
[2016-07-26] MEDS: cefTRIAXone Inj 2,000 MG in Dextrose 5% Minibag Plus 50 ML IV SCH (04:04)
--- NOTE | 2016-07-26 07:12 | NUR ---
pain/ c/o 11/24 generalized pain.administered IVP Morphine. pt report pain relief 07/25 which was his goal. pt void 1475ml output. pt had BM x1 Loose and medium.
[2016-07-26] MEDS: Azithromycin Inj 500 MG in Dextrose 5% w/Vial Mate 250 ML IV SCH (07:55)
[2016-07-26 08:28] LABS: BASOPHILS % (AUTO) 0.5 % (0-3); EOSINOPHILS % (AUTO) 2.1 % (0-5); MONOCYTES % (AUTO) 12.1 % (4-12); Mean Corpuscular Hemoglobin 30.9 pg (27.0-35.0); Mean Corpuscular Volume 86.8 fL (81-100); NEUTROPHILS % (AUTO) 51.3 % (40-74); Platelet Count 193 bil/L (150-400)
--- NOTE | 2016-07-26 08:58 | NUR ---
YADI YADI signed
--- NOTE | 2016-07-26 15:59 | PCM.PNMED ---
Subjective Date of Service Jul 26, 2016 Subjective Patient is seen and examined. He says he does not have abdominal pain this morning. Last night CT scan showed a lot of constipation and early ileus. General surgery consultation contacted. Meanwhile he was given mag citrate for constipation. Does Take Clear Liquids. No Overnight Fevers or Chills He Does Not Report Any Nausea Vomiting. No Other Concerns Today. Plan for his discharge tomorrow has been discussed with the family by calling the daughter and daughter is not aware and agreeable. Exam Vital Signs Vital Sign - Last Date Time Temp Pulse Resp B/P Pulse Ox O2 Delivery O2 Flow Rate FiO2 07/26/16 15:53 68 20 97 Nasal Cannula 1.50 07/26/16 06:05 36.5 153/79 Intake and Output 07/25/16 07/25/16 07/26/16 Cumulative From/Thru 15:00 23:00 07:00 07/24/16 00:00 - 07/26/16 06:22 Intake Total 1839 ml 6793 ml Output Total 1150 ml 3525 ml Balance 689 ml 3268 ml Intake Oral 500 ml 1000 ml IV Total 1339 ml 5793 ml Output Urine Total 1150 ml 3525 ml # Bowel Movements 0 Exam Gen.: No acute distress HEENT normocephalic atraumatic. Heart mild systolic murmur. Regular rate and rhythm Lungs diminished lower lobe negative for wheezing and rales. Abdomen: Appears less distended than last night. Bowel sounds are present Psych: Negative for anxiety : Neuro: No focal deficits. Extremities: Positive for edema IVs and Medications Medications Reviewed: Medications were reviewed in detail Lab and Diagnostics Result Diagram: 07/26/1680407/26/16 08 Microbiology Laboratory Tests Test 07/25/16 05:00 Urine Color Yellow Urine Appearance Clear Urine pH 5.5 Urine Specific [place] 1.020 Urine Protein Negativemg/dL Urine Glucose (UA) Negativemg/dL Urine Ketones Tracemg/dL Urine Occult Blood Trace Urine Nitrite Negative Urine Bilirubin Negative Urine Urobilinogen 1.0mg/dL Urine Leukocyte Esterase Negative Urine RBC 0-2/hpf Urine WBC 0-5/hpf Urine Epithelial Cells Occasional/hpf Urine Crystals None seen Urine Bacteria Few/hpf Urine Hyaline Casts None/lpf Urine Granular Casts Occasional Urine Waxy Casts None seen Urine Red Blood Cell Casts None seen Urine White Blood Cell Casts None seen Urine Mucus None seen Urine Trichomonas None seen Urine Yeast None Urinalysis Comment None Urine Culture Reflexed Not indicated Assessment & Plan Pascual Brewster is a 85 year old male with a history of ITP and hypertension who presents to the ED via EMS after became increasingly weak. Treated by Levaquin as outpatient but symptoms continues to worsens 1. Community acquired pneumonia. Failed outpatient therapy. Present on admission Likely due to sick contacts. Failed treatment with Levaquin. - Ceftriaxone and Azithromycin IV for empiric antibiotics - Blood cultures, Legionella test - Iv fluids resuscitations: 50 cc/hr 2. Influenza A infection. Present on admission - stating Tamiflu - advised family to contact their PCP for prophylactic treatment with Tamiflu - respiratory isolation 3. Hypertension Currently stable with compliance - Lisinopril 10 mg daily - holding Triamterene and HCTZ but continue on discharge 4. Chronic refractory idiopathic thrombocytopenia purpura Currently stable - continue follow up at Hematology clinic with Dr Neves - no anticoagulations due to risk of bleeding 5. Gipson's esophagus Previous EGD done with pathology showing no dysplasia - continue Omeprazole 20 mg bid - repeat upper endoscopy in three years for surveillance for Gipson's. 6. Benign Prostatic Hypertrophy - continue Flomax. Good urine output overnight - Acetaminophen as needed for mild pain/fever/headache - Bowel regimen as needed - Antiemetic as needed 7, Abdominal pain over incisional hernia: Pain control with morphine 4 mg IV every 4 hour when necessary, CT abdominal with contrast is ordered. General surgery contacted and aware. . [employer] is ordered diet changed to clear liquids as he seems to be getting this pain intermittently. We will await general surgery recommendations. Patient admitted under inpatient status with expected length of stay > 2 midnights for severity of present symptoms, complexities of treatment plan and risk for adverse event. He may be able to go home tomorrow if constipation resolves and his pain is controlled . Resuscitation Status: CPR: Attempt Resuscitation Jennifer Pineda DO Jul 26, 2016 15:59
--- NOTE | 2016-07-26 16:07 | NUR ---
Social Work: Continued Discharge Planning Data & Assessment: Spot Sprayer met with patient at bedside and notified him that PT is recommending Outpatient PT or Home Health PT. Patient requested that SW call his daughter for HH choice incase he needs HH when discharged and not Out Patient PT. Patient call patient's daughter and provided her with a choice of HH companies and she chose [facility]. Patient's F2F is in the folder. PT also recommended [facility] and patient and patient's daughter is in agreement with ordering patient's FWW from and in-network DME provider. Patient FWW order in folder and FWW will be ordered on Thursday when the provider is open. SW will continue to follow and assist patient throughout stay. Plan: SW will continue to follow patient's clinical course and refer patient to needed services at discharge. Patient will transport home via POV. Heather Donahue LMSW, MARCIE
--- NOTE | 2016-07-26 17:03 | NUR ---
mobility/respiratory/BM Pt up to chair x2 for at least 1 hour each time. Partial bed bath done, pt assisted. Lungs diminished, tight, course, cough present but not productive. pt given senna, miralax, mag citrate - awaiting BM.
--- NOTE | 2016-07-26 18:05 | NUR ---
mg citrate only able to tolerate about 3/4 of bottle reports feeling a little nauseated while drinking it. BSC placed near bed.
[2016-07-27] MEDS: Heparin 5,000 Unit/mL Inj SUBQ SCH ×2 (00:49→08:00)
[2016-07-27 01:00] VITALS: BP 139/75; PULSE 73; RESP 16; O2SAT 98
[2016-07-27] MEDS: cefTRIAXone Inj 2,000 MG in Dextrose 5% Minibag Plus 50 ML IV SCH (04:17)
[2016-07-27] MEDS: 0.9% Sodium Chloride 1,000 ML IV SCH (04:18)
[2016-07-27 04:42] VITALS: BP 153/83; PULSE 76; RESP 16; O2SAT 95
--- NOTE | 2016-07-27 05:37 | NUR ---
PAIN At 2030, pt reported generalized 6/10 pain but denied need for pain medication--"I'll wait til it gets worse." Pt appeared to sleep most of shift, but woke up at 0400 with 7-8/10 back pain, pt groaning and moving uncomfortably in bed. Gave pt 4mg morphine IV. Pt states "That seems to be the only thing that help with the pain." Pt currently sleeping. Hourly rounding.
[2016-07-27] MEDS: Azithromycin Inj 500 MG in Dextrose 5% w/Vial Mate 250 ML IV SCH (08:00)
[2016-07-27] MEDS ORDERED: Sodium Biphos-Phos 133 mL Enema RECTAL PRN (08:50)
[2016-07-27 08:56] VITALS: PULSE 76
[2016-07-27 10:00] VITALS: BP 130/79; PULSE 75; RESP 18; O2SAT 96
--- NOTE | 2016-07-27 10:08 | PCM.DC.MED ---
Discharge Summary Date of Service Jul 27, 2016 Dates of Hospitalization Date of Hospital Admission Jul 24, 2016 at 04:13 Date of Discharge: Jul 27, 2016 Providers: Admitting Physician: Ricky Dominguez MD Primary Care Physician: Austyn Pascal MD Attending Physician: Ricky Dominguez MD Diagnosis at Time of Discharge Diagnosis at Time of Discharge Influenza A, Community acquired Pneumonia, BPH, Hypertension Consultations Physical Therapy Procedures XRay, CTs & MRIs [facility] Diagnostic [place] [address] Patient Name: NAHUM BREWSTER MR#: [id number] Location: [facility] [place] Ordering Phys: Jennifer Morillo DO Date of Service: 07/25/162035 PROCEDURE: CT ABDOMEN AND PELVIS WITH CONTRAST ([id number]) INDICATIONS: abdominal pain over incisional hernia TECHNIQUE: After the administration of oral and intravenous contrast, 5 mm thick sections acquired from the diaphragms to the symphysis. 5 mm thick coronal and sagittal reformats were performed. For radiation dose reduction, the following was used : automated exposure control, adjustment of mA and/or kV according to patient size. COMPARISON: [facility], CT, CT ANGIO CHEST PE, 03/10/2016, 4:55. [facility], CT, CT ANGIO CHEST PE, 07/24/2016, 2:04. FINDINGS: Image quality: Excellent. ABDOMEN: Lung bases: Atelectasis or consolidation is present within the right lower lobe which is new when compared with the study dated 07/24/16. There are trace bilateral low density pleural effusions. Heart is normal size. No pericardial effusion. There is a small hiatal hernia. Solid organs: Liver and spleen are normal in size and enhancement. Gallbladder is surgically absent. Biliary system is non-dilated. Pancreas enhances normally. No adrenal nodules. Kidneys are normal in size and enhancement, without hydronephrosis. Peritoneum and bowel: The stomach is contrast-filled and decompressed. The small bowel demonstrates overall normal course and caliber. A large amount of stool and gas is present within the cecum. The appendix is not visualized; however surgical clips are present in the region of the cecum in the lower quadrant suggesting prior appendectomy. The transverse colon is moderately dilated with gas. The sigmoid colon is decompressed. A large amount of stool is present in the rectosigmoid region. There is a gas-filled duodenal diverticulum. No free fluid or air. Nodes and vessels: No retroperitoneal or mesenteric adenopathy. Aorta and inferior vena cava are normal in caliber. There are scattered atheromatous calcifications throughout the aorta and iliac arteries bilaterally. Miscellaneous: There are multiple small adjacent fat-containing ventral hernias. No bowel herniation. PELVIS: Genitourinary: Bladder wall thickness is normal. Miscellaneous: No inguinal hernias or adenopathy. Bones: No suspicious bony lesions. A wedge compression deformity is present at T12 unchanged with the study dated 03/10/16. IMPRESSION: 1. Large amount of stool in the rectosigmoid and cecal regions with moderate gaseous distention of the transverse and descending colon. These findings raise the suspicion for early ileus or early distal colonic obstruction secondary to fecal impaction. The small bowel remains decompressed. 2. Multiple small fat-containing ventral hernias as above. No bowel herniation. 3. Probable prior appendectomy. 4. New consolidation or atelectasis at the right lung base. Infection/ aspiration could be considered in the differential. Dictated by: Sandra Katz M.D. on 07/25/2016 at 21:55 Approved by: Sandra Katz M.D. on 07/25/2016 at 22:02 [facility] Diagnostic [place] [address] Patient Name: NAHUM BREWSTER MR#: [id number] Location: [facility] [place] Ordering Phys: Bebeto Ford MD Date of Service: 07/24/16 0138 PROCEDURE: CT ANGIO CHEST PULMONARY EMBOLISM ([id number]) INDICATIONS: short of breath, elev dimer TECHNIQUE: After the administration of intravenous contrast, 2 mm thick sections acquired from the pulmonary apices to the posterior costophrenic angles. 3-dimensional maximum intensity projection (MIP) coronal and sagittal reformats were then acquired through the thorax. For radiation dose reduction, the following was used: automated exposure control, adjustment of mA and/or kV according to patient size. COMPARISON: None. FINDINGS: Image quality: Excellent. Pulmonary arteries: Pulmonary arteries are normal in size, and demonstrate no intraluminal filling defects to suggest central pulmonary embolism. Lungs and pleura: Atelectasis noted in the dependent portions of the lungs. No pleural effusions or pneumothorax. Central and peripheral airways are patent. Mediastinum: Heart size is normal, without pericardial effusion. Atherosclerotic calcifications are noted in the aorta, great vessels, coronary vasculature. No mediastinal or hilar adenopathy. Thoracic aorta is normal in caliber and enhancement. Esophagus is normal in caliber, without hiatal hernia. Bones and chest wall: S-shaped scoliosis of the spine is noted. No suspicious bony lesions. Bilateral shoulder osteoarthritis noted. Thoracic spine degenerative disc disease and facet arthropathy noted. Ribs and thoracic spine appear intact throughout. Thyroid gland is within normal limits. No axillary or supraclavicular adenopathy. Abdomen: Hiatal hernia is noted. Spleen is absent. Gallbladder is absent.. IMPRESSION: No pulmonary embolus. Dictated by: Ethel Head MD, PhD on 07/24/2016 at 9:23 Approved by: Ethel Head MD, PhD on 07/24/2016 at 9:31 [facility] Diagnostic [place] [address] Patient Name: NAHUM BREWSTER MR#: [id number] Location: [facility] [place] Ordering Phys: Bebeto Ford MD Date of Service: 07/24/16 0018 PROCEDURE: X-RAY CHEST ONE VIEW, PORTABLE ([id number]) INDICATIONS: cough, fever TECHNIQUE: One view of the chest was acquired. COMPARISON: [facility], CR, XR CHEST 1VW (PORTABLE), 03/09/2016, 22 :10. FINDINGS: Surgical changes and devices: Left upper quadrant surgical clips. Lungs and pleura: No pleural effusions or pneumothorax. Lungs are clear, aside from medial bibasilar airspace opacities. Mediastinum: Mediastinal contours appear normal. Heart size is normal. Bones and chest wall: No suspicious bony lesions. Overlying soft tissues appear unremarkable. IMPRESSION: Probable atelectasis involving the lung bases but developing pneumonia or aspiration cannot be excluded. Dictated by: Marck Mitchell A Interpreted: Ethel Head MD on 07/24/2016 at 9:24 Transcribed by: ADILENE on 07/24/2016 at 9:25 Approved by: Ethel Head MD, PhD on 07/24/2016 at 17:01 Brief History Nahum Brewster is a 85 year old male with a history of ITP and hypertension who presents to the ED via EMS after became increasingly weak. Patient reports a frequent cough and difficulty breathing. Associated symptoms include chills, cough, dyspnea, fatigue, fever, sinus pressure, sore throat and wheezing. He also developed generalized weakness. His daughter reports that the patient nearly fell to the ground several times this evening and he is not able to ambulate well on his own. She claims that he sustained a ground level fall just prior to arrival. However, his daughter apparently heard a thump from the other room. His daughter reports that everyone in the family is currently has an upper respiratory infection. His was recently admitted to [place] for pneumonia. . Per his daughter, his PCP (Dr. Pascal) stated that the X-ray was a poor film and that he appeared "congested". He was started on Levaquin for an upper respiratory infection. The patient had his first dose this evening. The patient has also had a fever earlier today, as high as 102.1F. He denies a history of asthma or COPD. Patient denies chest pain or increased swelling in his legs. Case discussed with Dr Ford, plans to admit due to failed outpatient treatment for pneumonia Hospital Course Nahum Brewster is a 85 year old male with a history of ITP and hypertension who presents to the ED via EMS after became increasingly weak. Treated by Levaquin as outpatient but symptoms continues to worsens 1. Community acquired pneumonia POA: Failed outpatient therapy. Present on admission Likely due to sick contacts. Failed outpatient Levaquin therapy. Ceftriaxone and Azithromycin IV for empiric antibiotics. Blood cultures were ordered and NGTD. Legionella test was negative. He is given doxycyccline and azithromycin to complete the course. 2. Influenza A infection. Present on admission: Was treated with Tamiflu, respiratroy isolation precautions. He is given rest of his course to be completed at home 3. Hypertension: Home medication Lisinopril was given. Continue all home meds upon discharge. 4. 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 6. Benign Prostatic Hypertrophy: Flomax was continued. Initially patient had some trouble urinating but did just fine after his first day. 7, Abdominal pain over incisional hernia: Patient was noted to be constipated, CT abd W was negative for any signs of strangulation of the incisional hernia. He was initially given conservative regimen, then mag citrate and dulcolax supp at which point he was able to have good bowel movements. This relieved his abdominal pain completely. 8. Functional debility and weakness: PT/OT has seen the patient and suggested home with home health care. . Exam Vital Signs (Last) Date Time Temp Pulse Resp B/P Pulse Ox O2 Delivery O2 Flow Rate FiO2 07/27/16 08:56 76 07/27/16 04:42 Supplement Oxygen 07/27/16 04:42 37.0 16 153/83 95 1.50 Test 07/24/16 00:34 07/25/16 04:40 07/25/16 05:00 07/25/16 08:02 Prothrombin Time 10.7sec (8.1-12.5) Prothromb Time International Ratio 1.00ratio D-Dimer 1.4mg/L (<0.50) Lactic Acid Level 1.4mmol/L (0.4-2.0) Troponin T 0.010ug/L (0.0-0.011) Pro-B-Type Natriuretic Peptide 332pg/mL (0-486) Urine Legionella pneumophilia Ag Negative (Negative) Urine Color Yellow (YELLOW) Urine Appearance Clear (CLEAR,HAZY) Urine pH 5.5 (5.0-8.0) Urine Specific [place] 1.020 (1.003-1.035) Urine Protein Negativemg/dL (NEG,TRACE) Urine Glucose (UA) Negativemg/dL (NEGATIVE) Urine Ketones Tracemg/dL (NEGATIVE) Urine Occult Blood Trace (NEGATIVE) Urine Nitrite Negative (NEGATIVE) Urine Bilirubin Negative (NEGATIVE) Urine Urobilinogen 1.0mg/dL (NORMAL) Urine Leukocyte Esterase Negative (NEGATIVE) Urine RBC 0-2/hpf (0-2) Urine WBC 0-5/hpf (0-5) Urine Epithelial Cells Occasional/hpf (NONE-MOD) Urine Crystals None seen (NONE SEEN) Urine Bacteria Few/hpf (NONE-FEW) Urine Hyaline Casts None/lpf (NONE) Urine Granular Casts Occasional (NONE SEEN) Urine Waxy Casts None seen (NONE SEEN) Urine Red Blood Cell Casts None seen (NONE SEEN) Urine White Blood Cell Casts None seen (NONE SEEN) Urine Mucus None seen (None Seen) Urine Trichomonas None seen (NONE SEEN) Urine Yeast None (NONE SEEN) Urinalysis Comment None Urine Culture Reflexed Not indicated Procalcitonin 0.56ng/mL (0.00-0.08) Test 07/26/16 08:05 White Blood Count 7.7th/mm3 (3.8-10.1) Red Blood Count 4.18mil/mm3 (4.40-5.80) Hemoglobin 12.9g/dL (13.8-17.2) Hematocrit 36.3% (41.0-50.0) Mean Corpuscular Volume 86.8fL (81-100) Mean Corpuscular Hemoglobin 30.9pg (27.0-35.0) Mean Corpuscular Hemoglobin Concent 35.5% (32.0-37.0) Red Cell Distribution Width 12.8% (12.3-15.4) Platelet Count 193bil/L (150-400) Neutrophils (%) (Auto) 51.3% (40-74) Lymphocytes (%) (Auto) 33.9% (14-46) Monocytes (%) (Auto) 12.1% (4-12) Eosinophils (%) (Auto) 2.1% (0-5) Basophils (%) (Auto) 0.5% (0-3) Hematology Comments Sodium Level 129mEq/L (134-144) Potassium Level 4.0mEq/L (3.5-5.2) Chloride Level 93mEq/L (97-108) Carbon Dioxide Level 24mmol/L (18-29) Blood Urea Nitrogen 6mg/dL (8-27) Creatinine 0.57mg/dL (0.76-1.27) Estimat Glomerular Filtration Rate 145mL/min (>59) Glucose Level 99mg/dL (60-99) Calcium Level 8.2mg/dL (8.5-10.1) Total Bilirubin 0.5mg/dL (0.0-1.2) Aspartate Amino Transf (AST/SGOT) 20U/L (0-50) Alanine Aminotransferase (ALT/SGPT) 11U/L (0-44) Alkaline Phosphatase 54U/L (25-160) Total Protein 5.8g/dL (6.4-8.4) Albumin 3.1g/dL (3.4-5.0) Microbiology Results Laboratory Tests Test 07/25/16 05:00 Urine Color Yellow Urine Appearance Clear Urine pH 5.5 Urine Specific [place] 1.020 Urine Protein Negativemg/dL Urine Glucose (UA) Negativemg/dL Urine Ketones Tracemg/dL Urine Occult Blood Trace Urine Nitrite Negative Urine Bilirubin Negative Urine Urobilinogen 1.0mg/dL Urine Leukocyte Esterase Negative Urine RBC 0-2/hpf Urine WBC 0-5/hpf Urine Epithelial Cells Occasional/hpf Urine Crystals None seen Urine Bacteria Few/hpf Urine Hyaline Casts None/lpf Urine Granular Casts Occasional Urine Waxy Casts None seen Urine Red Blood Cell Casts None seen Urine White Blood Cell Casts None seen Urine Mucus None seen Urine Trichomonas None seen Urine Yeast None Urinalysis Comment None Urine Culture Reflexed Not indicated Discharge Medications Discharge Medications Cholecalciferol (Vitamin D3) (Vitamin D3) 2,000 Unit Capsule 1 CAPSULE PO DAILY (Reported) Cyanocobalamin (Vitamin B12) 500 Mcg Tablet 1,000 MCG PO DAILY (Reported) Doxycycline Hyclate (Doxycycline Hyclate) 100 Mg Tablet 100 MG PO BID Prescribed by: JENNIFER MORILLO DO Lisinopril (Lisinopril) 10 Mg Tablet 10 MG PO DAILY (Reported) Omeprazole (Omeprazole) 20 Mg Capsule.dr 20 MG PO BID (Reported) Oseltamivir Phosphate (Tamiflu) 10 Cap/Pkg Capsule 75 MG PO BID Prescribed by: JENNIFER MORILLO DO Tamsulosin (Flomax) 0.4 Mg Capsule 0.4 MG PO DAILY (Reported) Triamterene/HCTZ 37.5-25 mg (Triamterene/HCTZ 37.5-25 mg) 1 Each Tablet 0.5 TABLET PO DAILY (Reported) Jennifer Morillo DO Jul 27, 2016 10:08
[2016-07-27 12:57] LABS: BASOPHILS % (AUTO) 0.3 % (0-3); EOSINOPHILS % (AUTO) 1.2 % (0-5); MONOCYTES % (AUTO) 13.1 % (4-12); Mean Corpuscular Volume 86.7 fL (81-100); NEUTROPHILS % (AUTO) 53.4 % (40-74); Platelet Count 238 bil/L (150-400)
[2016-07-27] MEDS ORDERED: OSLT75C PO (13:40)
[2016-07-27] MEDS ORDERED: DOXY100T2 PO (13:44)
--- NOTE | 2016-07-27 13:46 | PCM.DIMED ---
Discharge Instructions Date of Service Jul 27, 2016 Dates of Hospitalization Jul 24, 2016 at 04:13 Discharge Diagnosis Discharge Diagnosis Influenza A, Pneumonia, urine retention, constipation, incisional hernia Diet Heart Healthy, Other (high fiber, probiotics) Activity No restrictions Call your provider Fever or Chills, Shortness of breath, Bleeding, Chest pain, Vomitting, Excessive diarrhea, Weakness (unilateral) Patient Instructions Follow-up plan Please follow up with your PCP in 2 weeks Use front wheeled walker for ambulation Jennifer Pineda DO Jul 27, 2016 13:46
--- NOTE | 2016-07-27 14:15 | NUR ---
Social Work-discharge: Data:EMR reviewed. Pt is on day 3 of hospitalization for pneumonia per H&P. Pt is medically stable for discharge today. PT has cleared pt for home with HH Vs outpt PT services. Family interested in Home Health services. MARINA called [facility], [facility], [facility], [facility], [facility], [facility] and [facility] and none of these agencies either contract with insurance or go to [place]. MARINA was able to obtain FWW for ED to for pt to take home today, MARINA had pt sign paperwork for FWW and placed this back in the chart. MARINA placed a call to daughter Betina [phone] to discuss options. MARINA explained to Betina that FWW has been obtained for pt and will be in room for pt to take home with him today. MARINA explained PT has cleared pt for home with outpt vs HH services, pt ambulating 400ft with FWW. MARINA explained to daughter that all Home Health companies( see listed above) have been contacted today and they either do not service pt's area or contract with pt's insurance. MARINA explained that MARINA could leave a message with [facility] and fax in referral and ask them to call daughter tomorrow. MARINA explained if [facility] is not able to do home health for pt then pt will have to go to outpt PT. Daughter states an understanding and states she is going to look into how she can get pt off of [employer] insurance.MARINA called [facility] and provided referral and then faxed in discharge packet, H&P, facesheet, and F2F for RN and PT to [phone]. Pt's is at home with Hospice services. Pt's daughter is helping take care of her and pt. Senior resources guide book has been provided to daughter for caregiving. Son and grandson also assisting daughter. Daughter to provide transport home today. All updated and agreeable to plan. Assessment:Pt who is independent at baseline. Plan:Pt to discharge home today via POV. MARINA called [facility] and provided referral and then faxed in discharge packet, H&P, facesheet, and F2F for RN and PT to [phone]. Daughter aware that [facility] will be calling her, if they are unable to do HH then pt will have to do outpt PT services, daughter aware and agreeable. FWW obtained and placed in room for pt to take home. PT has cleared for home with outpt [facility]. All updated and agreeable to plan. JORGE ALBERTO Mcneill Addendum: 07/27/16 at 1504 by [place] CHAVEZ SS MARINA received a call back from Jyothi at [facility] who states they contract with pt's insurance and will be able to accept the referral. Jyothi states that they will speak with PCP tomorrow and call daughter tomorrow and likely can start services on Thursday. MARINA called daughter Betina back and provided her with update that [facility] will take referral and will contact her at home tomorrow. MARINA also updated bedside RN. All updated and agreeable to plan. JORGE ALBERTO Mcneill
[2016-07-27 14:20] VITALS: BP 130/79; PULSE 75; RESP 18
--- NOTE | 2016-07-27 15:45 | NUR ---
Discharge Patient discharge to home via POV accompanied by daughter. Denies any SOB or any discomfort. Prescription sent electronically to [facility] in [place]. Discharge notes and instructions given and well understood by patient and daughter. All belongings taken home with him.
== END 2016-07-27 15:40 | disposition home health service (06) | DRG 194 ==
LOC: SED 23:56 → MOC 07-24 04:13
PROVIDERS: ADMIT Hospitalist; ATTEND Hospitalist
DX: J11.00 Influenza due to unidentified influenza virus with unspecified type of pneumonia (principal); D69.3 Immune thrombocytopenic purpura; I10 Essential (primary) hypertension; N40.0 Benign prostatic hyperplasia without lower urinary tract symptoms; K22.70 Barrett's esophagus without dysplasia; R53.81 Other malaise